=== PATIENT | female | born 1980 | race Two or more races ===

== ENCOUNTER 2021-09-18 09:18 | Emergency (ER) | payer BC ==
[~2021-09-18] VITALS: Ht 162.6 cm; Wt 98.9 kg
[2021-09-18] MEDS ORDERED: DICLOFENAC35 MG (09:29)
[2021-09-18] MEDS ORDERED: ZIPSOR25 MG (09:30)
== END 2021-09-18 10:34 | disposition home or self-care (01) ==
LOC: ER 09:18
DX: M54.50 Low back pain, unspecified (principal)